=== PATIENT | male | born 1940 | race Caucasian/White ===

== ENCOUNTER 2019-04-14 11:03 | Emergency (ER) | payer MEDICARE ==
[~2019-04-14] VITALS: Ht 193 cm; Wt 81.6 kg
[2019-04-14] MEDS ORDERED: ONDANSETRON HCL 4 MG ORAL DISINTEGRATING TAB PO ONE (11:30)
[2019-04-14 12:04] VITALS: BP 148/74
== END 2019-04-14 12:15 | disposition home or self-care (01) ==
LOC: ER 11:03
DX: R11.2 Nausea with vomiting, unspecified (principal); I10 Essential (primary) hypertension; D64.9 Anemia, unspecified; N18.9 Chronic kidney disease, unspecified; M54.9 Dorsalgia, unspecified; G89.29 Other chronic pain; G47.00 Insomnia, unspecified
CPT/HCPCS: 99283; Q0162

== ENCOUNTER → 2019-11-14 | Outpatient (CLI) | payer MEDICARE ==
[2019-11-14 13:24] LABS: BODY FLUID TYPE SYNOVIAL
[2019-11-14 13:25] LABS: BODY FLUID APPEARANCE CLEAR; BODY FLUID COLOR YELLOW
[2019-11-14 13:41] LABS: RBC,BODY FLUID 411 cells/uL; WBC,BODY FLUID 141 cells/uL
[2019-11-14 14:23] LABS: EOSINOPHILS,BODY FLUID 4 %; LYMPHOCYTES,BODY FLUID 18 %; MONO/MACROPHG,BODY FLUID 14 %; NEUTROPHILS,BODY FLUID 59 %; OTHER CELLS,BODY FLUID 5 %
== END ==
LOC: LAB 11:59
PROVIDERS: ATTEND Specialist
DX: M00.9 Pyogenic arthritis, unspecified (principal)
CPT/HCPCS: 36415; 87071; 87075; 87102; 87116; 87205; 87206; 89051; 89060

== ENCOUNTER → 2019-11-18 | Outpatient (CLI) | payer MEDICARE ==
[2019-11-18 14:41] LABS: BASOPHILS # (AUTO) 0.1 (0.0-0.1); BASOPHILS % 0.8 % (0.0-1.0); EOSINOPHILS # (AUTO) 0.2 (0.0-0.4); EOSINOPHILS % 3.8 % (0.0-6.0); HEMATOCRIT 31.7 % (38.2-49.6); HEMOGLOBIN 10.5 g/dL (14.0-18.0); LYMPHOCYTES # (AUTO) 1.6 (1.0-3.2); LYMPHOCYTES % 26.2 % (18.0-39.1); MEAN CORPUSCULAR HEMOGLOBIN 30.9 pg (28-32); MEAN CORPUSCULAR HGB CONC 33.1 g/dL (31-35); MEAN CORPUSCULAR VOLUME 93.2 fL (81-99); MONOCYTES # (AUTO) 0.5 (0.2-0.8); MONOCYTES % 8.5 % (4.4-11.3); NEUTROPHILS # (AUTO) 3.7 (2.1-6.9); NEUTROPHILS % 60.5 % (38.7-80.0); PLATELET COUNT 260 x10e3/uL (140-360); RED CELL DISTRIBUTION WIDTH 13.6 % (11.7-14.4)
[2019-11-18 15:28] LABS: ERYTHROCYTE SEDIMENTATION RATE 10 mm/hr (0-13)
== END ==
LOC: LAB 14:03
PROVIDERS: ATTEND Specialist
DX: M00.9 Pyogenic arthritis, unspecified (principal)
CPT/HCPCS: 36415; 85025; 85651; 86140